=== PATIENT | male | born 1945 | race Caucasian/White ===

== ENCOUNTER 2016-11-26 09:12 | Day surgery (SDC) | payer OTHER ==
[~2016-11-26] VITALS: Ht 177.8 cm; Wt 81.7 kg
[~2016-11-26 09:12] MED LIST: AMIODARONE HCL200 MG PO; ERGOCALCIF50000 UNIT PO; FOSAMAX70 MG PO; JANTOVEN1 MG PO; JANTOVEN5 MG PO; JANTOVEN7.5 MG PO; LO-DOSE ASPIRIN81 M1 PO; LOSARTAN POTASS50 MG PO; METOPROLOL SUC100 MG PO; NIASPAN500 MG PO; PRAVACHOL40 MG PO; SOTALOL80 MG PO; SYNTHROID125 MCG PO; TRIAZOLAM0.25 MG PO; WARFARIN SODIU2.5 MG PO; WARFARIN SODIUM1 MG PO; ZOFRAN ODT8 MG PO
[2016-11-26] MEDS ORDERED: WARFARIN SODIU2.5 MG PO ×2 (09:36→09:37)
[2016-11-26] MEDS ORDERED: WARFARIN SODIUM3 MG PO (09:38)
== END 2016-11-26 13:10 | disposition home or self-care (01) ==
LOC: CATH 09:12
PROC: 5A2204Z Restoration of Cardiac Rhythm, Single (ICD-10-PCS; principal; 2016-11-26)
DX: I48.91 Unspecified atrial fibrillation (principal); I25.10 Atherosclerotic heart disease of native coronary artery without angina pectoris; Z95.1 Presence of aortocoronary bypass graft; I10 Essential (primary) hypertension; E11.9 Type 2 diabetes mellitus without complications
CPT/HCPCS: 93005

== ENCOUNTER 2017-01-28 09:01 | Day surgery (SDC) | payer OTHER ==
[~2017-01-28 09:01] MED LIST changes: +WARFARIN SODIUM3 MG PO
[2017-01-28] MEDS ORDERED: AMIODARONE HCL200 MG PO (09:35)
[2017-01-28] MEDS ORDERED: METOPROLOL TART25 MG PO (09:36)
== END 2017-01-28 11:45 | disposition home or self-care (01) ==
LOC: CATH 09:01
PROC: 5A2204Z Restoration of Cardiac Rhythm, Single (ICD-10-PCS; principal; 2017-01-28)
DX: I48.91 Unspecified atrial fibrillation (principal); I25.10 Atherosclerotic heart disease of native coronary artery without angina pectoris; I10 Essential (primary) hypertension; E11.9 Type 2 diabetes mellitus without complications; Z95.1 Presence of aortocoronary bypass graft; Z88.2 Allergy status to sulfonamides; Z79.01 Long term (current) use of anticoagulants; E78.5 Hyperlipidemia, unspecified
CPT/HCPCS: 93005

== ENCOUNTER 2018-03-17 09:03 | Day surgery (SDC) | payer OTHER ==
[~2018-03-17 09:03] MED LIST changes: +METOPROLOL TART25 MG PO
[2018-03-17] MEDS ORDERED: ELIQUIS5 M1 PO (09:33)
[2018-03-17] MEDS ORDERED: ATORVASTATIN CA40 MG PO (09:35)
[2018-03-17] MEDS ORDERED: ATENOLOL25 MG PO (09:36)
[2018-03-17] MEDS ORDERED: MULTAQ400 MG PO (09:38)
[2018-03-17] MEDS ORDERED: HYDROCHLOROTH12.5 M3 PO (09:38)
[2018-03-17] MEDS ORDERED: TUMS500 MG PO (09:39)
== END 2018-03-17 12:10 | disposition home or self-care (01) ==
LOC: CATH 09:03
PROC: 5A2204Z Restoration of Cardiac Rhythm, Single (ICD-10-PCS; principal; 2018-03-17)
DX: I48.92 Unspecified atrial flutter (principal); I48.0 Paroxysmal atrial fibrillation; I25.10 Atherosclerotic heart disease of native coronary artery without angina pectoris; Z95.1 Presence of aortocoronary bypass graft; I10 Essential (primary) hypertension; E78.2 Mixed hyperlipidemia; E11.9 Type 2 diabetes mellitus without complications; I71.2 Thoracic aortic aneurysm, without rupture; Z85.850 Personal history of malignant neoplasm of thyroid; Z79.01 Long term (current) use of anticoagulants; Z79.82 Long term (current) use of aspirin
CPT/HCPCS: 93005